=== PATIENT | male | born 1970 | race Caucasian/White ===

== ENCOUNTER 2023-06-07 15:16 | Outpatient (CLI) | payer OTHER, SELFPAY | END 2023-06-07 15:17 | disposition home or self-care (01) | LOC: LKVREF 15:18 | PROVIDERS: PCP Physician Assistant Medical; Visit Provider Physician Assistant Medical | DX: R06.00 Dyspnea, unspecified (principal); R53.83 Other fatigue; I10 Essential (primary) hypertension | CPT/HCPCS: 84443 ==

== ENCOUNTER 2024-10-13 08:50 | Outpatient (CLI) | payer OTHER, SELFPAY ==
--- NOTE | 2024-10-13 09:56 | W.ANESCHARGE ---
Anesthesia Charges Start Date/Time Anesthesia Start Date: 10/13/24 Anesthesia Start Time: 09:25 Stop Date/Time Anesthesia Stop Date: 10/13/24 Anesthesia Stop Time: 09:55
== END 2024-10-13 08:51 | disposition home or self-care (01) ==
LOC: OP CLINIC 08:50
PROVIDERS: PCP Physician Assistant Medical; Visit Provider Internal Medicine
DX: Z12.11 Encounter for screening for malignant neoplasm of colon (principal); D12.5 Benign neoplasm of sigmoid colon; D12.2 Benign neoplasm of ascending colon; K57.30 Diverticulosis of large intestine without perforation or abscess without bleeding; Z86.0100 Personal history of colon polyps, unspecified
CPT/HCPCS: 00811; 45380; 88305; J2704